=== PATIENT | male | born 1995 | race Asian ===

== ENCOUNTER 2018-12-02 14:09 | Emergency (ER) | payer SELFPAY ==
[~2018-12-02] VITALS: Ht 182.9 cm; Wt 79.5 kg
[2018-12-02 14:18] VITALS: BP 124/70
== END 2018-12-02 14:33 ==
LOC: ER 14:10
DX: R21 Rash and other nonspecific skin eruption (principal); Z02.89 Encounter for other administrative examinations
CPT/HCPCS: 99283